=== PATIENT | male | born 1995 | race Hispanic/Latino ===

== ENCOUNTER 2020-03-26 13:52 | Emergency (ER) | payer BC ==
[~2020-03-26] VITALS: Ht 182.9 cm; Wt 68.0 kg
[2020-03-26] MEDS ORDERED: HYDROCODONE/APAP 7.5MG-325MG 1 EA TAB PO ONE (14:15)
--- OUTSIDE RECORDS SUMMARY | 2020-03-26 14:50 | XMS REPORT | Continuity of Care Document ---
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 Allergies, Adverse Reactions, Alerts Allergy Name Allergy Type Status Severity Reaction(s) Onset Date Inacti ve Date Treating Clinician Comments Source No Known Allergies DA Active U 2020-03-20 00:00:00 [facility] No Known Contrast Allergies DA Active U 2003-07-28 00:00: 00 [facility] No Known Drug Allergies DA Active U 2003-07-28 00:00:00 [facility] No Known Food Allergies DA Active U 2003-07-28 00:00:00 [facility] No Known Other Allergies DA Active U 2003-07-28 00:00:00 [facility] Medications This patient has no known medications. Procedures This patient has no known procedures. Results Test Description Test Time Test Comments Results Result Comments Source URINALYSIS COMPLETE 2020-03-21 01:28:00 Test Item UA COLOR (test code = COLU) COLORLESS YELLOW A UA APPEARANCE (test code = APPU) CLEAR CLEAR UA GLUCOSE DIPSTICK (test code = DGLUU) NEGATIVE mg/dL NEGATIVE UA BILIRUBIN DIPSTICK (test code = BILU) NEGATIVE mg/dL NEGATIVE UA KETONE DIPSTICK (test code = KETU) NEGATIVE mg/dL NEGATIVE UA SPECIFIC GRAVITY (test code = SGU) >1.050 1.001-1.035 UA BLOOD DIPSTICK (test code = MANUELA) 0.06 mg/dL (1+) mg/dL NEGATIVE A UA PH DIPSTICK (test code = XIN) 6.5 5.0-8.0 UA PROTEIN DIPSTICK (test code = PROU) NEGATIVE mg/dL NEGATIVE UA UROBILINIOGEN DIPSTICK (test code = URO) Normal mg/dL NEGATIVE UA NITRITE DIPSTICK (test code = BLANCO) NEGATIVE NEGATIVE UA LEUKOCYTE ESTERASE W REFLEX (test code = LEUUR) NEGATIVE Larry/uL NEGATIVE UA WBC (test code = WBCU) 0-5 per HPF 0-5 UA RBC (test code = RBCU) 6-10 #/HPF 0-5 A UA EPITHELIAL CELLS (test code = EPIU) FEW per HPF FEW UA BACTERIA (test code = BACU) NONE SEEN #/HPF NONE Urine Source? Clean Catch- CT ABD PELVIS [id number] 00:18:00 Name: CARIDADVERONAASCENCION GODFREY JR [facility] : 1995 Age/S: 24 / M [address] [facility] Unit #: [id number] Loc: [place] [address] Phys: Edwardo Delgado MD Acct: [id number] Di s Date: Status: REG ER PHONE #: [phone] Exam Date: 03/20/2020 7434 FAX #: [phone] Reason: pain, trauma EXAMS: CPT CODE: [id number] CT ABD PELVIS W/CONT 34414 CT abdomen and pelvis with IV contrast. Indication: Pain, trauma Location: R16 Comparison: None available Technique: CT images of the abdomen and pelvis were obtained from the diaphragm to the pubic symp hysis after the administration of intravenous contrast contrast. Coronal r eformats are provided. One or more of the following dose reduction techniques were used: Automated exposure control, adjustment of the mA an d/or kV according to patient size, and/or utilization of iterative reconst ruction technique. Findings: Lungs bases: Unre markable with the exception of a partially visualized likely less than 3 m m right middle lobe lung nodule. Liver: Unremarkable. Gallbl adder: Unremarkable. Pancreas: Unremarkable. Spleen: Unremarkable. Adrenal glands: Unremarkable. Kidneys: Unremarkable. Bowel: No bowel obstruction. The appendix is unremarkable.. A large volume of stool seen throughout the colon nonspecific but compatible clinical diagnosis of constipation. Mild fluid-filled appearance of small bowel is nonspecific and may be within normal limits or representing a very mild enteritis or ileus in setting of constipation Peritoneum: No ascites. No free air Skeletal: No acute fracture.. Impression: No CT evidence of an acute abnormality within the abdominal pelvis to explain the patient's symptomology with exception of likely constipation Mild fluid-filled appearance of small bowel is nonspecific and may be within normal limits or representing a very mild enteritis or ileus in PAGE 1 Signed Report (C ONTINUED) Name: VERONA MCLEAN [facility] : 1995 Age/S: 24 / M [address] it #: [id number] Loc: [place] [address] Phys: Brandie Delgado MD Acct: [id number] Dis Date: Status: REG ER PHONE #: [phone] Exam Date: 03/20/2020 2345 FAX #: [phone] Reason: pain, trauma E XAMS: CPT CODE: [id number] CT ABD PELVIS W/CONT 22363 <Continued> setting of constipation Additional findings as detailed above at 0018 Reported and signed by: Brigitte Erickson M.D. CC: Brandie Delgado MD Technologist:GENEVIEVE PRASAD RT; GERMANIA CORTEZ CTDI: DLP: Trnscb Date/Time: 03/21/2020 (0 018) [id number] Orig Print D/T: S: 03/21/2020 (0021) PAGE 2 Signed Report COMPREHENSIVE METABOLIC [id number] 23:46:00* Test Item Value Reference Range Interpretation Comments SODIUM (test code = NA) 141 mmol/L 136-145 N POTASSIUM (test code = K) 3.9 mmol/L 3.5-5.1 N CHLORIDE (test code = CL) 110.0 mmol/L 98-107 H CARBON DIOXIDE (test code = CO2) 26.0 mmol/L 21-32 N ANION GAP (test code = GAP) 8.9 10-20 L GLUCOSE (test code = GLU) 100 mg/dL 74-106 N BLOOD UREA NITROGEN (test code = BUN) 15 mg/dL 7-18 N GLOMERULAR FILTRATION RATE (test code = GFR) > 60 mL/min >=60 Estimated GFR by using Modified MDRD formula.Chronic kidney disease is defined as either kidney damageor GFR <60 mL/min/1.73 m2 for >3 months. CREATININE (test code = CREAT) 0.90 mg/dL 0.7-1.3 N BUN/CREATININE RATIO (test code = BUN/CREA) 15.9 10-20 N TOTAL PROTEIN (test code = PROT) 7.6 gram/dL 6.4-8.2 N ALBUMIN (test code = ALB) 3.9 g/dL 3.4-5.0 N GLOBULIN (test code = GLOB) 3.7 gram/dL 2.7-4.2 N ALBUMIN/GLOBULIN RATIO (test code = A/G) 1.1 0.75-1.50 N CALCIUM (test code = CA) 8.7 mg/dL 8.5-10.1 N BILIRUBIN TOTAL (test code = BILT) 0.60 mg/dL 0.0-1.0 N SGOT/AST (test code = AST) 30 IUnit/L 15-37 N SGPT/ALT (test code = ALT) 45 IUnit/L 12-78 N ALKALINE PHOSPHATASE TOTAL (test code = ALKP) 73 IUnit/L 45-117 N Note change in reference range due to change in reagent. COMPREHENSIVE METABOLIC [id number] 23:39:00* Test Item Value Reference Range Interpretation Comments SODIUM (test code = NA) 141 mmol/L 136-145 N POTASSIUM (test code = K) 3.9 mmol/L 3.5-5.1 N CHLORIDE (test code = CL) 110.0 mmol/L 98-107 H CARBON DIOXIDE (test code = CO2) mmol/L 21-32 ANION GAP (test code = GAP) 10-20 GLUCOSE (test code = GLU) mg/dL 74-106 BLOOD UREA NITROGEN (test code = BUN) mg/dL 7-18 GLOMERULAR FILTRATION RATE (test code = GFR) mL/min >=60 CREATININE (test code = CREAT) mg/dL 0.7-1.3 BUN/CREATININE RATIO (test code = BUN/CREA) 10-20 TOTAL PROTEIN (test code = PROT) gram/dL 6.4-8.2 ALBUMIN (test code = ALB) g/dL 3.4-5.0 GLOBULIN (test code = GLOB) gram/dL 2.7-4.2 ALBUMIN/GLOBULIN RATIO (test code = A/G) 0.75-1.50 CALCIUM (test code = CA) mg/dL 8.5-10.1 BILIRUBIN TOTAL (test code = BILT) mg/dL 0.0-1.0 SGOT/AST (test code = AST) IUnit/L 15-37 SGPT/ALT (test code = ALT) IUnit/L 12-78 ALKALINE PHOSPHATASE TOTAL (test code = ALKP) IUnit/L 45-117 CBC W/AUTO [id number] 23:22:00* Test Item Value Reference Range Interpretation Comments WHITE BLOOD CELL (test code = WBC) 8.4 K/mm3 4.5-12.5 N RED BLOOD CELL (test code = RBC) 4.98 mill/mm3 4.0-5.8 N HEMOGLOBIN (test code = HGB) 14.9 gram/dL 13.0-17.5 N HEMATOCRIT (test code = HCT) 43.7 % 42.0-52.0 N MEAN CELL VOLUME (test code = MCV) 87.8 fL 80-98 N MEAN CELL HGB (test code = MCH) 29.9 picogram 27.0-33.0 N MEAN CELL HGB CONCETRATION (test code = MCHC) 34.1 gram/dL 33.0-36. 0 N RED CELL DISTRIBUTION WIDTH (test code = RDW) 12.2 % 11.6-16. 2 N RED CELL DISTRIBUTION WIDTH SD (test code = RDW-SD) 39.2 fL 37 .0-51.0 N PLATELET COUNT (test code = PLT) 227 K/mm3 150-450 N MEAN PLATELET VOLUME (test code = MPV) 10.4 fL 6.7-11.0 N NEUTROPHIL % (test code = NT%) 64.3 % 39.0-69.0 N IMMATURE GRANULOCYTE % (test code = IG%) 0.4 % 0.0-5.0 N LYMPHOCYTE % (test code = LY%) 25.9 % 25.0-55.0 N MONOCYTE % (test code = MO%) 6.9 % 0.0-10.0 N EOSINOPHIL % (test code = EO%) 1.8 % 0.0-5.0 N BASOPHIL % (test code = BA%) 0.7 % 0.0-1.0 N NUCLEATED RBC % (test code = NRBC%) 0.0 % 0-0 N NEUTROPHIL # (test code = NT#) 5.43 K/mm3 1.8-7.7 N IMMATURE GRANULOCYTE # (test code = IG#) 0.03 x10 3/uL 0-0.03 N LYMPHOCYTE # (test code = LY#) 2.18 K/mm3 1.0-5.0 N MONOCYTE # (test code = MO#) 0.58 K/mm3 0-0.8 N EOSINOPHIL # (test code = EO#) 0.15 K/mm3 0.0-0.5 N BASOPHIL # (test code = BA#) 0.06 K/mm3 0.0-0.2 N NUCLEATED RBC # (test code = NRBC#) 0.00 K/mm3 0.0-0.1 N MANUAL DIFF REQUIRED (test code = MDIFF) NO
[2020-03-26] MEDS ORDERED: KETOROLAC TROMETHAMINE 60 MG/2 ML VIAL IM ONE (15:00)
[2020-03-26 15:58] LABS: BILIRUBIN,URINE NEGATIVE (NEGATIVE); CLARITY,URINE HAZY (CLEAR); COLOR,URINE YELLOW (YELLOW); KETONES,URINE NEGATIVE (NEGATIVE); LEUKOCYTE ESTERASE ,URINE NEGATIVE (NEGATIVE); NITRITE,URINE NEGATIVE (NEGATIVE); PROTEIN,URINE DIPSTICK NEGATIVE (NEGATIVE); URINE UROBILINOGEN 0.2 mg/dL (0.2 - 1)
[2020-03-26 16:03] LABS: BACTERIA,URINE RARE /HPF; EPITHELIAL CELLS,URINE RARE /LPF; RBC,URINE 0-5 /HPF (0-5); WBC,URINE (MAN) 0-5 /HPF (0-5)
--- NOTE | 2020-03-26 16:22 | Diagnostic Imaging Report ---
EXAMINATION: RIBS UNILAT W/CXR INDICATION: Chest pain concerning for rib fractures. COMPARISON: None FINDINGS: TUBES and LINES: None. LUNGS: Normal lung volumes. Lungs are clear. No consolidations. PLEURA: No pleural effusion or pneumothorax. HEART AND MEDIASTINUM: The cardiomediastinal silhouette is unremarkable. BONES: There are no displaced rib fractures identified. No acute osseous abnormality. SOFT TISSUES: Soft tissues are unremarkable. UPPER ABDOMEN: No free air under the diaphragm. IMPRESSION: 1. No displaced rib fractures. 2. Normal chest x-ray. Signed by: Karla Up MD on 03/26/2020 4:19 PM
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
== END 2020-03-26 16:43 | disposition home or self-care (01) ==
LOC: ER 14:48
DX: R07.89 Other chest pain (principal); R10.30 Lower abdominal pain, unspecified; V43.52XA Car driver injured in collision with other type car in traffic accident, initial encounter; Y92.488 Other paved roadways as the place of occurrence of the external cause
CPT/HCPCS: 71101; 81001; 99284; J1885